=== PATIENT | female | born 1950 | race Caucasian/White ===

== ENCOUNTER 2024-11-20 07:55 | Outpatient (CLI) | payer MEDICARE, OTHER | END 2024-11-20 07:56 | disposition home or self-care (01) | LOC: CSHCP 07:55 | PROVIDERS: ATTEND Internal Medicine | DX: J45.20 Mild intermittent asthma, uncomplicated (principal); R91.8 Other nonspecific abnormal finding of lung field; J44.89 Other specified chronic obstructive pulmonary disease; J98.11 Atelectasis; R91.1 Solitary pulmonary nodule | CPT/HCPCS: 71250; 94060; 94664; 94726; 94729; 94760 ==